=== PATIENT | female | born 1940 | race Two or more races ===

== ENCOUNTER 2017-06-09 13:30 | Outpatient (CLI) | payer OTHER ==
[~2017-06-09 13:30] MED LIST: AMIODARONE HCL200 MG PO; ASPIR 8181 MG; BACTROBAN OINT22 GM TP; CATAFLAM50 MG PO; D3 DOTS2000 UNIT; FUROSEMIDE10 MG/M1 IV; GLUCOPHAGE XR500 MG; KOMBIGLYZE XR1 EAC2; LANOXIN125 MCG PO; LIPITOR40 MG PO; LOSARTAN POTASS25 MG; ONGLYZA2.5 MG; PLAVIX75 MG; SIMVASTATIN5 MG; TOPROL XL50 M1 PO; XARELTO20 MG PO; ZOCOR40 MG
== END 2017-06-09 13:48 | disposition home or self-care (01) ==
LOC: NUCLEAR 13:30
DX: M81.0 Age-related osteoporosis without current pathological fracture (principal)

== ENCOUNTER 2017-06-17 10:47 | Outpatient (CLI) | payer OTHER | END 2017-06-17 10:55 | disposition home or self-care (01) | LOC: LAB 10:47 | DX: I73.9 Peripheral vascular disease, unspecified (principal) ==

== ENCOUNTER 2018-04-06 12:28 | Outpatient (CLI) | payer OTHER | END 2018-04-06 15:34 | disposition home or self-care (01) | LOC: RAD 12:28 | DX: J45.998 Other asthma (principal) ==

== ENCOUNTER 2018-12-25 10:21 | Emergency (ER) | payer OTHER ==
[~2018-12-25] VITALS: Ht 172.7 cm; Wt 75.3 kg
[2018-12-25] MEDS ORDERED: XARELTO20 MG (11:30)
== END 2018-12-25 12:30 | disposition home or self-care (01) ==
LOC: ER 10:21
DX: S90.32XA Contusion of left foot, initial encounter (principal); W20.8XXA Other cause of strike by thrown, projected or falling object, initial encounter; Y93.89 Activity, other specified; Y92.89 Other specified places as the place of occurrence of the external cause; Y99.8 Other external cause status

== ENCOUNTER 2019-02-11 08:59 | Outpatient (CLI) | payer OTHER ==
[~2019-02-11 08:59] MED LIST changes: +XARELTO20 MG
== END 2019-02-11 09:30 | disposition home or self-care (01) ==
LOC: NUCLEAR 08:59
DX: I20.0 Unstable angina (principal)

== ENCOUNTER 2019-03-31 05:49 | Emergency (ER) | payer OTHER ==
[~2019-03-31] VITALS: Ht 175.3 cm; Wt 67.1 kg
== END 2019-03-31 13:25 | disposition home or self-care (01) ==
LOC: ER 05:49
DX: R42 Dizziness and giddiness (principal)

== ENCOUNTER 2020-01-12 08:57 | Outpatient (CLI) | payer OTHER ==
[~2020-01-12 08:57] MED LIST changes: +JANUMET 50-1,01 EACH PO
== END 2020-01-12 09:03 | disposition home or self-care (01) ==
LOC: TOM 08:57
PROVIDERS: ATTEND Specialist
DX: K57.90 Diverticulosis of intestine, part unspecified, without perforation or abscess without bleeding (principal); C18.2 Malignant neoplasm of ascending colon; C18.7 Malignant neoplasm of sigmoid colon; I70.8 Atherosclerosis of other arteries

== ENCOUNTER 2020-08-28 13:00 | Outpatient (CLI) | payer OTHER | END 2020-08-28 13:17 | disposition home or self-care (01) | LOC: SONOGRAMA 13:00 | PROVIDERS: ATTEND Specialist | DX: E03.9 Hypothyroidism, unspecified (principal) ==

== ENCOUNTER 2020-08-31 10:47 | Outpatient (CLI) | payer OTHER | END 2020-08-31 10:49 | disposition home or self-care (01) | LOC: NUCLEAR 10:47 | PROVIDERS: ATTEND Specialist | DX: I70.213 Atherosclerosis of native arteries of extremities with intermittent claudication, bilateral legs (principal) ==

== ENCOUNTER 2020-10-10 12:04 | Outpatient (CLI) | payer OTHER | END 2020-10-10 12:13 | disposition home or self-care (01) | LOC: RAD 12:04 | PROVIDERS: ATTEND Specialist | DX: I10 Essential (primary) hypertension (principal); J45.998 Other asthma ==

== ENCOUNTER 2020-10-23 00:12 | Inpatient (IN) | payer OTHER ==
[~2020-10-23] VITALS: Ht 172.7 cm; Wt 63.5 kg
[2020-10-23] MEDS ORDERED: VASOTEC5 MG (00:32)
== END 2020-10-26 18:24 | disposition home or self-care (01) | DRG 309 ==
LOC: ER 00:12 → ICU-2 16:05 → MEDI 10-25 17:23 → MEDJ 10-25 20:39
PROVIDERS: ADMIT Specialist; ATTEND Specialist
PROC: 3E0F7SF Introduction of Other Gas into Respiratory Tract, Via Natural or Artificial Opening (ICD-10-PCS; principal; 2020-10-25)
PROC: 4A12X4Z Monitoring of Cardiac Electrical Activity, External Approach (ICD-10-PCS; 2020-10-25)
DX: I48.91 Unspecified atrial fibrillation (principal); J98.11 Atelectasis; I43 Cardiomyopathy in diseases classified elsewhere; I10 Essential (primary) hypertension; E11.9 Type 2 diabetes mellitus without complications; I25.10 Atherosclerotic heart disease of native coronary artery without angina pectoris; I50.9 Heart failure, unspecified; I11.0 Hypertensive heart disease with heart failure; E11.65 Type 2 diabetes mellitus with hyperglycemia; F10.10 Alcohol abuse, uncomplicated; I16.0 Hypertensive urgency; Z20.822 Contact with and (suspected) exposure to COVID-19; I27.20 Pulmonary hypertension, unspecified

== ENCOUNTER 2020-11-06 11:08 | Inpatient (IN) | payer OTHER ==
[~2020-11-06] VITALS: Ht 172.7 cm; Wt 63.5 kg
[~2020-11-06 11:08] MED LIST changes: +VASOTEC5 MG
== END 2020-11-12 17:29 | disposition home or self-care (01) | DRG 292 ==
LOC: ER 11:08 → ICU-2 14:36 → ICU 11-07 06:07 → MEDI 11-08 18:44
PROVIDERS: ADMIT Specialist; ATTEND Specialist
PROC: 4A033R1 Measurement of Arterial Saturation, Peripheral, Percutaneous Approach (ICD-10-PCS; principal; 2020-11-06)
DX: I11.0 Hypertensive heart disease with heart failure (principal); J98.11 Atelectasis; E87.2 Acidosis; I50.23 Acute on chronic systolic (congestive) heart failure; I27.22 Pulmonary hypertension due to left heart disease; I34.0 Nonrheumatic mitral (valve) insufficiency; J44.9 Chronic obstructive pulmonary disease, unspecified; F10.10 Alcohol abuse, uncomplicated; I25.10 Atherosclerotic heart disease of native coronary artery without angina pectoris; I42.0 Dilated cardiomyopathy; Z72.0 Tobacco use

== ENCOUNTER 2020-11-30 13:30 | Outpatient (CLI) | payer OTHER | END 2020-11-30 13:50 | disposition home or self-care (01) | LOC: RAD 13:30 | PROVIDERS: ATTEND Specialist | DX: R07.89 Other chest pain (principal); J90 Pleural effusion, not elsewhere classified ==

== ENCOUNTER 2021-06-27 08:00 | Outpatient (CLI) | payer OTHER | END 2021-06-27 08:30 | disposition home or self-care (01) | LOC: PPH VACUNA 08:00 | PROVIDERS: ATTEND Emergency Medicine Pediatric Emergency Medicine | DX: Z23 Encounter for immunization (principal) ==

== ENCOUNTER 2021-07-02 10:09 | Outpatient (CLI) | payer OTHER | END 2021-07-02 10:28 | disposition home or self-care (01) | LOC: LAB 10:09 | PROVIDERS: ATTEND Specialist | DX: E03.9 Hypothyroidism, unspecified (principal); E11.21 Type 2 diabetes mellitus with diabetic nephropathy; N39.0 Urinary tract infection, site not specified; E78.2 Mixed hyperlipidemia; E11.65 Type 2 diabetes mellitus with hyperglycemia; Z12.11 Encounter for screening for malignant neoplasm of colon; D64.9 Anemia, unspecified; J45.998 Other asthma; K75.81 Nonalcoholic steatohepatitis (NASH); N25.81 Secondary hyperparathyroidism of renal origin ==

== ENCOUNTER 2021-07-08 13:48 | Outpatient (CLI) | payer OTHER | END 2021-07-08 13:53 | disposition home or self-care (01) | LOC: LAB 13:48 | PROVIDERS: ATTEND Specialist | DX: E03.9 Hypothyroidism, unspecified (principal); E11.21 Type 2 diabetes mellitus with diabetic nephropathy; N39.9 Disorder of urinary system, unspecified; E78.2 Mixed hyperlipidemia; E11.65 Type 2 diabetes mellitus with hyperglycemia; D64.9 Anemia, unspecified; J45.998 Other asthma; K75.81 Nonalcoholic steatohepatitis (NASH); N25.81 Secondary hyperparathyroidism of renal origin ==

== ENCOUNTER 2021-08-01 12:08 | Emergency (ER) | payer OTHER ==
[~2021-08-01] VITALS: Ht 142.2 cm; Wt 64.0 kg
[2021-08-08] MEDS ORDERED: ENALAPRIL MALE2.5 MG PO (12:50)
[2021-08-08] MEDS ORDERED: ATORVASTATIN CA20 MG PO (12:50)
[2021-08-08] MEDS ORDERED: XARELTO20 MG (12:50)
[2021-08-08] MEDS ORDERED: AMIODARONE HCL200 MG PO (12:50)
[2021-08-08] MEDS ORDERED: METOPROLOL SUCC50 MG PO (12:51)
== END 2021-08-01 14:22 | disposition home or self-care (01) ==
LOC: ER 12:08
DX: M54.50 Low back pain, unspecified (principal)

== ENCOUNTER → 2021-08-08 | Emergency (ER) | payer OTHER ==
[~2021-08-08] VITALS: Ht 172.7 cm; Wt 64.0 kg
[~2021-08-08] MED LIST changes: +ATORVASTATIN CA20 MG PO; +ENALAPRIL MALE2.5 MG PO; +METOPROLOL SUCC50 MG PO
== END | disposition left against medical advice (07) ==
LOC: ER 12:38
DX: M54.59 Other low back pain (principal)

== ENCOUNTER 2023-04-01 09:24 | Emergency (ER) | payer OTHER ==
[~2023-04-01] VITALS: Ht 152.4 cm; Wt 68.0 kg
[2023-04-01 11:47] LABS: HEMATOCRIT 44.3 % (36.0-45.00); MEAN CELL VOLUME 95.6 fL (80.00-100.00); MEAN CORPUSCULAR HEMOGLOBIN 32.3 pg (27.00-32.0); MEAN CORPUSCULAR HGB CONC 33.8 g/dl (32.0-36.0); PLATELET COUNT 170 K/uL (150-450); RED BLOOD COUNT 4.64 M/uL (4.00-6.00); RED CELL DISTRIBUTION WIDTH 14.7 % (11.5-14.5)
== END 2023-04-01 13:31 | disposition home or self-care (01) ==
LOC: ER 09:24
PROVIDERS: General Practice
DX: I48.91 Unspecified atrial fibrillation (principal); I10 Essential (primary) hypertension; E11.9 Type 2 diabetes mellitus without complications; Z79.84 Long term (current) use of oral hypoglycemic drugs

== ENCOUNTER 2023-09-29 05:14 | Inpatient (IN) | payer OTHER ==
[~2023-09-29] VITALS: Ht 172.7 cm; Wt 68.9 kg
--- NOTE | 2023-09-29 05:47 | NUR ---
PTE ALERTA Y ORIENTADA X3. SE RECIBE A PTE EN COMPANIA DE PARAMEDICOS, PTE REFIERE TENER ARRITMIAS EN MENDOZA HOGAR HACE DOS GARCIA. SE HORTENCIA SV Y SE UBICA
[2023-09-29] MEDS ORDERED: RINGERS SOLUTION,LACTATED 1,000 ML IV STA (05:48)
[2023-09-29] MEDS ORDERED: DILTIAZEM HCL 25 MG/5 ML VIAL IV STA (05:49)
--- NOTE | 2023-09-29 06:38 | NUR ---
SE RECIBE PACIENTE A UNIDAD DE DOLOR DE PECHO. RN JUDIT Y RN [place] REALIZAN ACOSTA DE MUESTRAS Y VENOPUNCION A PACIENTE. SE ADMINISTRA 25 MG/5ML DE CARDIZEM ELBA ORDEN MEDICA. PACIENTE REFIERE REBECA VENIDO A CIRA DE EMERGENCIAS DEBIDO A QUE SENTIA PALPITACIONES DESDE HACE DOS GARCIA. SE MANTIENE EN OBSERVACION POR CAMBIOS SIGNIFICATIVOS.
--- NOTE | 2023-09-29 06:47 | NUR ---
PENDIENTE ABG'S Y CHEST XRAY LOS CUALES FUERON NOTIFICADOS.
[2023-09-29 06:53] LABS: HEMOGLOBIN 14.3 g/dL (12.0-15.00); MEAN CELL VOLUME 92.3 fL (80.00-100.00); MEAN CORPUSCULAR HEMOGLOBIN 31.5 pg (27.00-32.0); MEAN CORPUSCULAR HGB CONC 34.1 g/dl (32.0-36.0); PLATELET COUNT 150 K/uL (150-450); RED BLOOD COUNT 4.55 M/uL (4.00-6.00); RED CELL DISTRIBUTION WIDTH 14.1 % (11.5-14.5)
[2023-09-29 07:18] LABS: ALBUMIN 3.9 gm/dL (3.4-5.0); BILIRUBIN TOTAL 1.22 mg/dL (0.3-1.2); CALCIUM 9.3 mg/dL (8.5-10.1); CREATININE SERUM 0.96 mg/dL (0.55-1.02); GFR 55.64; GLOBULINA 4.1 G/DL (2.4-3.5); POTASSIUM 4.14 mEq/L (3.5-5.1)
[2023-09-29 07:20] LABS: INR 1.4; PROTHROMBIN TIME 14.3 SECONDS (9.0-11.5)
[2023-09-29 07:26] LABS: PARTIAL THROMBOPLASTIN TIME 38.3 SECONDS (22.0-34.0)
[2023-09-29 09:26] LABS: ABG PH 7.421 (7.35-7.45); ABG PO2 76.8 mmHg (80-100); ABG pCO2 33.1 mmHg (35-45); BASE EXCESS -2.5 mmol/l; SaO2 95.4 %; Tco2 22.1 mmol/l
[2023-09-29 09:27] LABS: allen test SATISFACTORY; o2 21 %; puncture site RADIAL LEFT
[2023-09-29] MEDS ORDERED: ATORVASTATIN CALCIUM 20 MG TABLET PO SCH (13:28)
[2023-09-29] MEDS ORDERED: RIVAROXABAN 20 MG TABLET PO SCH (13:28)
[2023-09-29] MEDS ORDERED: DILTIAZEM HCL 125 MG in DEXTROSE 5 % IN WATER 125 ML IV SCH (13:30)
[2023-09-29] MEDS ORDERED: SODIUM CHLORIDE 0.45 % 1,000 ML IV SCH (13:30)
[2023-09-29] MEDS ORDERED: DILTIAZEM HCL 125 MG in 0.9 % SODIUM CHLORIDE 100 ML IV SCH (13:45)
[2023-09-29] MEDS ORDERED: DEXTROSE 50 % IN WATER 0.5 G/ML DISP.SYRIN IV PRN (13:45)
[2023-09-29] MEDS ORDERED: INSULIN LISPRO 1,000 UNIT/10 ML UNITS SUBCUTANEO PRN (13:45)
[2023-09-29] MEDS ORDERED: DIGOXIN 0.25 MG/ML AMPUL IV ONE (16:30)
[2023-09-29] MEDS ORDERED: METOPROLOL TARTRATE 25 MG TABLET PO SCH ×3 (17:00)
[2023-09-30 07:14] LABS: INR 1.43; PROTHROMBIN TIME 14.6 SECONDS (9.0-11.5)
[2023-09-30 07:16] LABS: PARTIAL THROMBOPLASTIN TIME 41.7 SECONDS (22.0-34.0)
[2023-09-30 07:19] LABS: ALBUMIN 3.7 gm/dL (3.4-5.0); BILIRUBIN TOTAL 1.31 mg/dL (0.3-1.2); BILIRUBIN,CONJUGATED 0.32 mg/dL (0.0-0.2); BILIRUBIN,UNCONJUGATED 0.99 mg/dL (0.0-0.6); CALCIUM 9.3 mg/dL (8.5-10.1); CHOL HDL RATIO 3.6 (0-5.0); CREATININE SERUM 0.73 mg/dL (0.55-1.02); GFR 76.32; GLOBULINA 3.7 G/DL (2.4-3.5); MAGNESIUM 1.9 mg/dL (1.8-2.4); POTASSIUM 4.31 mEq/L (3.5-5.1); T4 FREE 1.15 NG/ML (0.76-1.46); TOTAL PROTEIN 7.4 gm/dL (6.4-8.2)
[2023-09-30 07:20] LABS: C-REACTIVE PROTEIN 1.33 MG/DL (0.00-0.29)
[2023-09-30] MEDS ORDERED: DEXTROSE 50 % IN WATER 0.5 G/ML VIAL IV PRN (07:30)
[2023-09-30] MEDS ORDERED: DIGOXIN 0.25 MG TABLET PO SCH (09:00)
[2023-10-01] MEDS ORDERED: RIVAROXABAN 15 MG TABLET PO SCH (09:00)
[2023-10-01] MEDS ORDERED: METOPROLOL TARTRATE 25 MG TABLET PO SCH (17:00)
== END 2023-10-02 09:37 | disposition home or self-care (01) | DRG 309 ==
LOC: ER 05:14 → MEDI 14:46
PROVIDERS: ADMIT Specialist; ATTEND Specialist
PROC: B24BZZZ Ultrasonography of Heart with Aorta (ICD-10-PCS; principal; 2023-09-29)
PROC: 4A12X4Z Monitoring of Cardiac Electrical Activity, External Approach (ICD-10-PCS; 2023-09-29)
DX: I48.0 Paroxysmal atrial fibrillation (principal); I13.0 Hypertensive heart and chronic kidney disease with heart failure and stage 1 through stage 4 chronic kidney disease, or unspecified chronic kidney disease; I50.9 Heart failure, unspecified; F10.20 Alcohol dependence, uncomplicated; J44.9 Chronic obstructive pulmonary disease, unspecified; E78.5 Hyperlipidemia, unspecified; I25.10 Atherosclerotic heart disease of native coronary artery without angina pectoris; I34.0 Nonrheumatic mitral (valve) insufficiency; I07.1 Rheumatic tricuspid insufficiency; E11.22 Type 2 diabetes mellitus with diabetic chronic kidney disease; N18.9 Chronic kidney disease, unspecified; Z79.4 Long term (current) use of insulin

== ENCOUNTER 2023-11-01 11:07 | Emergency (ER) | payer OTHER ==
[~2023-11-01] VITALS: Ht 172.7 cm; Wt 66.7 kg
[2023-11-01] MEDS ORDERED: INSULIN REGULAR, HUMAN 1,000 UNIT/10 ML UNITS SUBCUTANEO ONE (11:30)
[2023-11-01] MEDS ORDERED: ASPIRIN 325 MG TABLET PO ONE (11:30)
[2023-11-01] MEDS ORDERED: ASPIRIN 81 MG TAB.CHEW PO ONE (11:30)
[2023-11-01] MEDS ORDERED: FAMOtidine 10 MG/ML (4ML VIAL) IV ONE (11:30)
[2023-11-01] MEDS ORDERED: AMIODARONE HCL IV SCH (11:30)
[2023-11-01] MEDS ORDERED: AMIODARONE HCL 50 MG/ML AMPUL IV ONE (11:33)
[2023-11-01] MEDS ORDERED: FAMOTIDINE/PF 20 MG/2 ML VIAL ONE (11:33)
[2023-11-01 11:57] LABS: HEMATOCRIT 41.7 % (36.0-45.00); MEAN CELL VOLUME 90.6 fL (80.00-100.00); MEAN CORPUSCULAR HEMOGLOBIN 30.4 pg (27.00-32.0); MEAN CORPUSCULAR HGB CONC 33.5 g/dl (32.0-36.0); PLATELET COUNT 145 K/uL (150-450); RED CELL DISTRIBUTION WIDTH 15.1 % (11.5-14.5)
[2023-11-01 12:06] LABS: ABG pCO2 38.8 mmHg (35-45); BASE EXCESS -0.4 mmol/l; BICARBONATE 24.1 mmol/l (23-25); SaO2 95.2 %; Tco2 25.2 mmol/l
[2023-11-01 12:13] LABS: o2 21 %
[2023-11-01 12:14] LABS: allen test SATISFACTORY; puncture site RADIAL RIGHT
[2023-11-01 12:23] LABS: BILIRUBIN TOTAL 1.02 mg/dL (0.3-1.2); CALCIUM 9.5 mg/dL (8.5-10.1); CREATININE SERUM 0.9 mg/dL (0.55-1.02); GFR 59.94; GLOBULINA 3.5 G/DL (2.4-3.5); POTASSIUM 4.54 mEq/L (3.5-5.1); TOTAL PROTEIN 7.5 gm/dL (6.4-8.2)
[2023-11-01 12:25] LABS: INR 1.39; PROTHROMBIN TIME 14.2 SECONDS (9.0-11.5)
[2023-11-01 12:26] LABS: PARTIAL THROMBOPLASTIN TIME 38.2 SECONDS (22.0-34.0)
[2023-11-01 13:31] LABS: PH,URINE 5.5 (5.0-8.0); URINE APPEARANCE Clear; URINE BILIRRUBIN Negative (NEGATIVE); URINE BLOOD Negative; URINE COLOR Yellow; URINE KETONE Trace (NEGATIVE); URINE LEUKOCYTE Negative; URINE NITRATE Negative; URINE PROTEIN Negative (NEGATIVE); URINE UROBILINOGEN 0.2 E.U./dl
[2023-11-01 13:36] LABS: URINE BACTERIA 95.7 uL (0.0-1933); URINE RBC 7.9 uL (0.0-20.8); URINE WBC 128.3 uL (0.0-23.2)
[2023-11-01 13:51] LABS: URINE CAST 0.15 uL (0.0-1.40); URINE GLUCOSE 100 MG/DL (NEGATIVE)
[2023-11-02] MEDS ORDERED: 0.9 % SODIUM CHLORIDE 1,000 ML IV SCH (09:00)
== END 2023-11-01 15:15 | disposition home or self-care (01) ==
LOC: ER 11:07
PROVIDERS: General Practice
DX: R00.2 Palpitations (principal); I10 Essential (primary) hypertension; E11.9 Type 2 diabetes mellitus without complications; Z79.84 Long term (current) use of oral hypoglycemic drugs
CPT/HCPCS: 36415; 51702; 71045; 82803; 96365; 99283; J3490

== ENCOUNTER 2023-11-18 10:21 | Emergency (ER) | payer OTHER ==
[~2023-11-18] VITALS: Ht 172.7 cm; Wt 68.9 kg
[2023-11-18] MEDS ORDERED: SYNJARDY 12.5-1 EACH (10:30)
== END 2023-11-18 15:03 | disposition home or self-care (01) ==
LOC: ER 10:23
DX: S91.201A Unspecified open wound of right great toe with damage to nail, initial encounter (principal); W45.8XXA Other foreign body or object entering through skin, initial encounter; W22.8XXA Striking against or struck by other objects, initial encounter; Y93.89 Activity, other specified; Y92.89 Other specified places as the place of occurrence of the external cause; I49.8 Other specified cardiac arrhythmias

== ENCOUNTER 2024-02-12 17:18 | Emergency (ER) | payer OTHER ==
[~2024-02-12] VITALS: Ht 172.7 cm; Wt 65.8 kg
[~2024-02-12 17:18] MED LIST changes: +SYNJARDY 12.5-1 EACH
[2024-02-12] MEDS ORDERED: LEVALBUTEROL HCL 0.63 MG/3 ML SOLUTION IH ONE (17:45)
[2024-02-12] MEDS ORDERED: DEXTROSE 50 % IN WATER 0.5 G/ML VIAL IV ONE (17:45)
[2024-02-12] MEDS ORDERED: BENZONATATE 100 MG CAPSULE PO ONE (17:45)
[2024-02-12] MEDS ORDERED: 0.9 % SODIUM CHLORIDE 500 ML IV ONE (17:45)
[2024-02-12 18:35] LABS: HEMATOCRIT 43.5 % (36.0-45.00); HEMOGLOBIN 15.2 g/dL (12.0-15.00); MEAN CELL VOLUME 91.3 fL (80.00-100.00); MEAN CORPUSCULAR HEMOGLOBIN 31.9 pg (27.00-32.0); MEAN CORPUSCULAR HGB CONC 34.9 g/dl (32.0-36.0); PLATELET COUNT 207 K/uL (150-450); RED BLOOD COUNT 4.76 M/uL (4.00-6.00); RED CELL DISTRIBUTION WIDTH 15.4 % (11.5-14.5)
[2024-02-12 19:04] LABS: BILIRUBIN TOTAL 0.71 mg/dL (0.3-1.2); CALCIUM 9.8 mg/dL (8.5-10.1); CREATININE SERUM 0.64 mg/dL (0.55-1.02); GFR 88.84; POTASSIUM 4.28 mEq/L (3.5-5.1)
[2024-02-12 19:31] LABS: ABG PH 7.408 (7.35-7.45); ABG pCO2 38.3 mmHg (35-45)
[2024-02-12 19:32] LABS: ABG PO2 74.5 mmHg (80-100); BASE EXCESS -0.8 mmol/l; BICARBONATE 23.6 mmol/l (23-25); SaO2 94.8 %; Tco2 24.8 mmol/l; allen test SATISFACTORY; o2 21 %; puncture site RADIAL RIGHT
[2024-02-12 19:52] LABS: PH,URINE 6.5 (5.0-8.0); URINE APPEARANCE Cloudy; URINE BILIRRUBIN Negative (NEGATIVE); URINE BLOOD Negative; URINE COLOR Yellow; URINE KETONE Negative (NEGATIVE); URINE LEUKOCYTE Moderate; URINE NITRATE Negative; URINE PROTEIN Negative (NEGATIVE)
[2024-02-12 19:56] LABS: URINE BACTERIA 205.3 uL (0.0-1933); URINE EPITHELIAL CELLS 7.1 uL (0.0-38.8); URINE RBC 72.3 uL (0.0-20.8); URINE WBC 41.5 uL (0.0-23.2)
[2024-02-12 20:10] LABS: URINE GLUCOSE >=1000 MG/DL (NEGATIVE)
[2024-02-12 20:11] LABS: URINE CRYSTALS FEW /HPF; URINE MUCUS SCANT
[2024-02-12] MEDS ORDERED: BENZONATATE200 M1 PO (20:47)
[2024-02-12] MEDS ORDERED: BACTRIM DS TAB1 EACH PO (20:47)
[2024-02-12] MEDS ORDERED: PEPCID AC20 MG PO (20:47)
== END 2024-02-12 23:36 | disposition home or self-care (01) ==
LOC: ER 17:18
PROVIDERS: General Practice
DX: E11.649 Type 2 diabetes mellitus with hypoglycemia without coma (principal); Z79.84 Long term (current) use of oral hypoglycemic drugs; Z20.822 Contact with and (suspected) exposure to COVID-19
CPT/HCPCS: 36415; 71045; 82803; 96365; 96366; 99283; J7030; J7070

== ENCOUNTER 2024-02-16 20:04 | Emergency (ER) | payer OTHER ==
[~2024-02-16] VITALS: Ht 172.7 cm; Wt 65.8 kg
[~2024-02-16 20:04] MED LIST changes: +BACTRIM DS TAB1 EACH PO; +BENZONATATE200 M1 PO; +PEPCID AC20 MG PO
[2024-02-16 21:41] LABS: HEMATOCRIT 42.3 % (36.0-45.00); HEMOGLOBIN 14.9 g/dL (12.0-15.00); MEAN CELL VOLUME 91.2 fL (80.00-100.00); MEAN CORPUSCULAR HGB CONC 35.1 g/dl (32.0-36.0); PLATELET COUNT 206 K/uL (150-450); RED BLOOD COUNT 4.64 M/uL (4.00-6.00); RED CELL DISTRIBUTION WIDTH 15.4 % (11.5-14.5)
[2024-02-16 22:22] LABS: CALCIUM 9.3 mg/dL (8.5-10.1); CREATININE SERUM 0.5 mg/dL (0.55-1.02); GFR 118.12; POTASSIUM 4.19 mEq/L (3.5-5.1)
[2024-02-16 23:18] LABS: URINE APPEARANCE Cloudy; URINE BILIRRUBIN Negative (NEGATIVE); URINE BLOOD Trace; URINE COLOR Yellow; URINE KETONE Trace (NEGATIVE); URINE LEUKOCYTE Moderate; URINE NITRATE Negative; URINE PROTEIN Trace (NEGATIVE)
[2024-02-16 23:22] LABS: URINE BACTERIA 855.5 uL (0.0-1933); URINE RBC 58.6 uL (0.0-20.8); URINE WBC 459.3 uL (0.0-23.2)
[2024-02-16 23:30] LABS: URINE CAST 0.15 uL (0.0-1.40); URINE GLUCOSE 500 MG/DL (NEGATIVE)
[2024-02-17] MEDS ORDERED: 0.9 % SODIUM CHLORIDE 1,000 ML IV ONE (05:30)
[2024-02-17] MEDS ORDERED: CEFTRIAXONE SODIUM 1,000 MG VIAL IV STA (06:20)
[2024-02-17] MEDS ORDERED: CEPHALEXIN250 MG/5 M PO (07:30)
== END 2024-02-17 08:45 ==
LOC: ER 20:04
PROVIDERS: Emergency Medicine
DX: R63.0 Anorexia (principal); I49.8 Other specified cardiac arrhythmias; I10 Essential (primary) hypertension; N39.0 Urinary tract infection, site not specified; Z20.822 Contact with and (suspected) exposure to COVID-19; E11.65 Type 2 diabetes mellitus with hyperglycemia; Z79.84 Long term (current) use of oral hypoglycemic drugs
CPT/HCPCS: 36415; 93005; 96365; 96366; 99283; J0696; J7030

== ENCOUNTER 2024-02-25 15:46 | Emergency (ER) | payer OTHER ==
[~2024-02-25] VITALS: Ht 172.7 cm; Wt 63.5 kg
[~2024-02-25 15:46] MED LIST changes: +CEPHALEXIN250 MG/5 M PO
[2024-02-25 17:49] LABS: HEMATOCRIT 39.6 % (36.0-45.00); HEMOGLOBIN 13.9 g/dL (12.0-15.00); MEAN CELL VOLUME 92.6 fL (80.00-100.00); MEAN CORPUSCULAR HEMOGLOBIN 32.6 pg (27.00-32.0); MEAN CORPUSCULAR HGB CONC 35.2 g/dl (32.0-36.0); PLATELET COUNT 163 K/uL (150-450); RED BLOOD COUNT 4.27 M/uL (4.00-6.00); RED CELL DISTRIBUTION WIDTH 15.9 % (11.5-14.5)
[2024-02-25 17:53] LABS: URINE APPEARANCE Clear; URINE BILIRRUBIN Negative (NEGATIVE); URINE BLOOD Negative; URINE COLOR Yellow; URINE KETONE Negative (NEGATIVE); URINE LEUKOCYTE Trace; URINE NITRATE Negative; URINE PROTEIN Negative (NEGATIVE)
[2024-02-25 17:56] LABS: INR 1.22; PARTIAL THROMBOPLASTIN TIME 36.4 SECONDS (22.0-34.0); PROTHROMBIN TIME 13.1 SECONDS (9.0-11.5)
[2024-02-25 17:57] LABS: URINE BACTERIA 25.1 uL (0.0-1933); URINE EPITHELIAL CELLS 5.5 uL (0.0-38.8); URINE RBC 22.5 uL (0.0-20.8); URINE WBC 53.9 uL (0.0-23.2)
[2024-02-25 18:00] LABS: CALCIUM 9.4 mg/dL (8.5-10.1); CREATININE SERUM 0.64 mg/dL (0.55-1.02); GFR 88.84; POTASSIUM 4.22 mEq/L (3.5-5.1)
[2024-02-25 18:02] LABS: URINE CAST 0.15 uL (0.0-1.40); URINE GLUCOSE 500 MG/DL (NEGATIVE)
[2024-02-25] MEDS ORDERED: CEFTRIAXONE SODIUM 2,000 MG VIAL IV ONE (18:45)
== END 2024-02-25 22:01 | disposition home or self-care (01) ==
LOC: ER 15:46
PROVIDERS: Emergency Medicine
DX: N39.0 Urinary tract infection, site not specified (principal); R53.1 Weakness; E11.9 Type 2 diabetes mellitus without complications; Z79.84 Long term (current) use of oral hypoglycemic drugs; I10 Essential (primary) hypertension; Z20.822 Contact with and (suspected) exposure to COVID-19
CPT/HCPCS: 36415; 93005; 96365; 99283; J0696

== ENCOUNTER 2024-06-27 09:29 | Outpatient (CLI) | payer OTHER | END 2024-06-27 09:35 | disposition home or self-care (01) | LOC: RAD 09:29 | PROVIDERS: ATTEND General Practice | DX: M51.369 Other intervertebral disc degeneration, lumbar region without mention of lumbar back pain or lower extremity pain (principal) ==

== ENCOUNTER → 2024-08-03 | Outpatient (CLI) | payer OTHER | END | disposition home or self-care (01) | LOC: SONOGRAMA 08:08 | PROVIDERS: ATTEND General Practice | DX: M79.661 Pain in right lower leg (principal); M79.662 Pain in left lower leg ==

== ENCOUNTER 2024-08-23 09:27 | Outpatient (CLI) | payer OTHER | END 2024-08-23 09:28 | disposition home or self-care (01) | LOC: NUCLEAR 09:27 | PROVIDERS: ATTEND General Practice | DX: I73.9 Peripheral vascular disease, unspecified (principal); I82.409 Acute embolism and thrombosis of unspecified deep veins of unspecified lower extremity; I87.2 Venous insufficiency (chronic) (peripheral) ==

== ENCOUNTER 2024-08-26 10:19 | Outpatient (CLI) | payer OTHER | END 2024-08-26 10:20 | disposition home or self-care (01) | LOC: NUCLEAR 10:19 | PROVIDERS: ATTEND General Practice | DX: I73.9 Peripheral vascular disease, unspecified (principal); I82.409 Acute embolism and thrombosis of unspecified deep veins of unspecified lower extremity ==

== ENCOUNTER 2025-01-27 09:54 | Outpatient (CLI) | payer OTHER | END 2025-01-27 10:01 | disposition home or self-care (01) | LOC: RAD 09:54 | PROVIDERS: ATTEND Specialist | DX: M99.01 Segmental and somatic dysfunction of cervical region (principal); M99.02 Segmental and somatic dysfunction of thoracic region; J45.998 Other asthma ==